=== PATIENT | female | born 1985 | race Caucasian/White ===

== ENCOUNTER → 2017-03-14 | Outpatient (CLI) | payer BC ==
[~2017-03-14] VITALS: Ht 170.2 cm; Wt 123.4 kg
[~2017-03-14] MED LIST: GLUCOPHAGE1000 MG PO; MIRENA52 MG IU; MULTIPLE VITAMI1 TA5 PO
[2017-03-14 14:56] VITALS: BP 102/72; PULSE 76
== END ==
LOC: LIGHT 06-21 15:00
DX: E88.81 Metabolic syndrome and other insulin resistance (principal); E66.01 Morbid (severe) obesity due to excess calories; Z68.41 Body mass index [BMI] 40.0-44.9, adult; Z71.3 Dietary counseling and surveillance; E16.1 Other hypoglycemia

== ENCOUNTER → 2017-04-22 | Outpatient (CLI) | payer BC | LOC: BHSO 09:08 | DX: Z01.89 Encounter for other specified special examinations (principal) ==

== ENCOUNTER → 2017-04-22 | Outpatient (CLI) | payer BC ==
[~2017-04-22] VITALS: Ht 170.2 cm; Wt 126.6 kg
[2017-04-22 16:33] VITALS: BP 138/79; PULSE 81
== END ==
LOC: LIGHT 08:58
DX: E88.81 Metabolic syndrome and other insulin resistance (principal); E66.01 Morbid (severe) obesity due to excess calories; Z68.41 Body mass index [BMI] 40.0-44.9, adult; Z71.3 Dietary counseling and surveillance; E16.1 Other hypoglycemia

== ENCOUNTER → 2017-06-24 | Outpatient (CLI) | payer BC ==
[~2017-06-24] MED LIST changes: +ZOFRAN8 MG PO
== END ==
LOC: LIGHT 14:55
DX: Z01.818 Encounter for other preprocedural examination (principal)

== ENCOUNTER 2017-07-10 07:50 | Day surgery (SDC) | payer BC ==
[2017-07-10] VITALS (10 sets, daily range): BP systolic 104–131; BP diastolic 50–86; PULSE 64–97; TEMP 97.4–98.9
[~2017-07-10] VITALS: Ht 170.2 cm; Wt 123.0 kg
[~2017-07-10 07:50] MED LIST changes: -ZOFRAN8 MG PO
[2017-07-11 02:04] VITALS: BP 131/52; PULSE 65; TEMP 98.7
[2017-07-11 05:59] VITALS: BP 140/75; PULSE 60; TEMP 98.4
[2017-07-11 09:27] VITALS: BP 158/80; PULSE 59; TEMP 98.3
[2017-07-11 14:56] VITALS: BP 170/89; PULSE 54; TEMP 97.9
[2017-07-15] MEDS ORDERED: ZOFRAN8 MG PO (14:31)
== END 2017-07-11 18:00 | disposition home or self-care (01) ==
LOC: SDCO 07:50 → SURG 11:21 → SDCO 07-11 18:00
DX: E66.01 Morbid (severe) obesity due to excess calories (principal); Z68.41 Body mass index [BMI] 40.0-44.9, adult; E78.00 Pure hypercholesterolemia, unspecified; E88.81 Metabolic syndrome and other insulin resistance; E16.1 Other hypoglycemia
CPT/HCPCS: OP; A9284; J0360; J1100; J1170; J1200; J1885; J2405; J2550; J2704; J2710; J7042; J7120

== ENCOUNTER → 2017-07-15 | Outpatient (CLI) | payer BC ==
[~2017-07-15] VITALS: Ht 170.2 cm; Wt 117.3 kg
[~2017-07-15] MED LIST changes: +ZOFRAN8 MG PO
[2017-07-15 14:32] VITALS: BP 106/78; PULSE 106
== END ==
LOC: LIGHT 09:04
DX: Z98.84 Bariatric surgery status (principal); R73.01 Impaired fasting glucose; E66.01 Morbid (severe) obesity due to excess calories; Z68.41 Body mass index [BMI] 40.0-44.9, adult; Z71.3 Dietary counseling and surveillance; E16.1 Other hypoglycemia

== ENCOUNTER → 2017-08-12 | Outpatient (CLI) | payer BC ==
[~2017-08-12] VITALS: Ht 170.2 cm; Wt 110.4 kg
[2017-08-12 15:10] VITALS: BP 100/68; PULSE 68
== END ==
LOC: LIGHT 10:15
DX: Z98.84 Bariatric surgery status (principal); R73.01 Impaired fasting glucose; E66.01 Morbid (severe) obesity due to excess calories; Z68.38 Body mass index [BMI] 38.0-38.9, adult; Z71.3 Dietary counseling and surveillance; E16.1 Other hypoglycemia

== ENCOUNTER → 2017-10-21 | Outpatient (CLI) | payer BC ==
[~2017-10-21] VITALS: Ht 170.2 cm; Wt 97.3 kg
[2017-10-21 16:39] VITALS: BP 106/70; PULSE 72
== END ==
LOC: LIGHT 09:36
DX: Z98.84 Bariatric surgery status (principal); R73.01 Impaired fasting glucose; E66.9 Obesity, unspecified; Z68.33 Body mass index [BMI] 33.0-33.9, adult; Z71.3 Dietary counseling and surveillance; E16.1 Other hypoglycemia
CPT/HCPCS: G0463

== ENCOUNTER → 2017-12-30 | Outpatient (CLI) | payer BC ==
[~2017-12-30] VITALS: Ht 170.2 cm; Wt 89.1 kg
[~2017-12-30] MED LIST changes: +MIRENA52 MG IY
[2017-12-30 15:37] VITALS: BP 130/70; PULSE 68
== END ==
LOC: LIGHT 08:57
DX: Z98.84 Bariatric surgery status (principal); R73.01 Impaired fasting glucose; E66.9 Obesity, unspecified; Z68.30 Body mass index [BMI] 30.0-30.9, adult; Z71.3 Dietary counseling and surveillance; E16.1 Other hypoglycemia
CPT/HCPCS: G0463

== ENCOUNTER → 2018-07-14 | Outpatient (CLI) | payer BC ==
[~2018-07-14] VITALS: Ht 170.2 cm; Wt 72.6 kg
[2018-07-14 16:44] VITALS: BP 108/68; PULSE 60
== END ==
LOC: LIGHT 06-30 13:38
DX: E16.9 Disorder of pancreatic internal secretion, unspecified (principal); Z98.84 Bariatric surgery status; E66.9 Obesity, unspecified; Z71.3 Dietary counseling and surveillance; Z68.25 Body mass index [BMI] 25.0-25.9, adult
CPT/HCPCS: G0463

== ENCOUNTER 2020-11-26 23:23 | Emergency (ER) | payer BC ==
[~2020-11-26] VITALS: Ht 167.6 cm; Wt 75.0 kg
[2020-11-26 23:29] VITALS: BP 122/69; TEMP 96.7
[2020-11-26 23:52] LABS: BASO # 0.1 (0.0-0.2); BASO % 0.6 % (0.0-2.0); EOS # 0.3 (0.0-0.7); EOS % 2.5 % (0-4.0); GRAN # 7.6 (1.4-6.5); GRAN % 60.8 % (42.2-75.2); HEMATOCRIT 36.8 % (37.0-47.0); HEMOGLOBIN 12.7 g/dl (12.5-16.0); LYMPH # 3.5 (1.2-3.4); LYMPH % 28.4 % (20.0-51.0); MEAN CELL VOLUME 89 fl (80.0-100.0); MEAN CORPUSCULAR HEMOGLOBIN 31 pg (27.0-31.0); MEAN CORPUSCULAR HGB CONC 35 g/dl (33.0-37.0); MEAN PLATELET VOLUME 11.2 fl (7.4-10.4); MONO # 0.9 (0.1-0.6); MONO % 7.5 % (1.7-9.3); PLATELET COUNT 265 K/mm3 (130-400); RED BLOOD COUNT 4.12 M/mm3 (4.10-5.30); REDCELL DISTRIBUTION WIDTH-CV 11.7 % (11.5-14.5)
[2020-11-27 00:03] LABS: ALBUMIN 4.2 gm/dL (3.5-5.0); BILIRUBIN,TOTAL 0.4 mg/dL (0.0-1.0); CALCIUM 9.3 mg/dL (8.4-10.2); CREATININE, serum 0.7 (0.52-1.25); POTASSIUM 3.5 mmol/L (3.4-5.0); TOTAL PROTEIN 7.3 gm/dL (6.4-8.2)
[2020-11-27 01:12] LABS: COLLECTION METHOD CLEAN CATCH
[2020-11-27 01:19] LABS: MUCOUS Present /lpf; PH 6 (5-8); SQUAMOUS EPITHELIAL 0-2 /hpf; URINE APPEARANCE Hazy; URINE BACTERIA None Seen /hpf; URINE BILIRUBIN Negative (NEGATIVE); URINE BLOOD Negative (NEGATIVE); URINE COLOR Yellow; URINE GLUCOSE Negative (NEGATIVE); URINE KETONE 1+ (NEGATIVE); URINE LEUKOCYTE ESTERASE 1+ (NEGATIVE); URINE NITRATE Negative (NEGATIVE); URINE PROTEIN(semi-quant) Negative (NEGATIVE); URINE RBC 0-2 /hpf; URINE UROBILINOGEN >=4.0 mg/dL (NEGATIVE)
[2020-11-27] MEDS ORDERED: ZOFRAN ODT4 MG PO (02:57)
[2020-11-27 03:16] VITALS: PULSE 77
== END 2020-11-27 03:16 | disposition home or self-care (01) ==
LOC: COL.ER 23:23
PROVIDERS: Family Medicine
DX: R10.13 Epigastric pain (principal); Z98.84 Bariatric surgery status; Z32.02 Encounter for pregnancy test, result negative
CPT/HCPCS: J2270; J2405; J7030; Q9967

== ENCOUNTER → 2020-12-08 | Outpatient (CLI) | payer BC ==
[~2020-12-08] MED LIST changes: +MOTRIN 600600 MG/TAB PO; +NORCO 325 MG-51 TAB PO; +ZOFRAN ODT4 MG PO
== END ==
LOC: COL.RAD 07:50
DX: K80.20 Calculus of gallbladder without cholecystitis without obstruction (principal)

== ENCOUNTER → 2020-12-21 | Outpatient (CLI) | payer BC | LOC: COL.RAD | DX: R10.11 Right upper quadrant pain (principal) | CPT/HCPCS: A9537; J2805 ==

== ENCOUNTER 2020-12-30 10:36 | Day surgery (SDC) | payer BC ==
[~2020-12-30] VITALS: Ht 170.2 cm; Wt 75.5 kg
[2020-12-30] VITALS (8 sets, daily range): BP systolic 97–110; BP diastolic 53–69; PULSE 55–69; TEMP 98.3–98.8
[~2020-12-30 10:36] MED LIST changes: -MOTRIN 600600 MG/TAB PO; -NORCO 325 MG-51 TAB PO
[2020-12-30] MEDS ORDERED: NORCO 325 MG-51 TAB PO (14:37)
[2020-12-30] MEDS ORDERED: MOTRIN 600600 MG/TAB PO (14:38)
--- NOTE | 2020-12-30 15:10 | NUR ---
Patient returns to room 8 per cart from PACU and is awake and alert. IV fluids infusing and site is free of redness. Incisions x4 on abdomen from scope covered with exofin dressing. Temp 98.6 and room air sats 100%. Siderails up x2 and call light in reach. Spouse in room. Allowed to rest.
--- NOTE | 2020-12-30 15:25 | NUR ---
Resting without complaints of pain or nausea.
--- NOTE | 2020-12-30 15:40 | NUR ---
Continues to rest and not disturbed.
--- NOTE | 2020-12-30 15:55 | NUR ---
Room air sats 98%. Resting and offers no complaints of pain or nausea.
--- NOTE | 2020-12-30 16:10 | NUR ---
Continues to rest without complaints of pain or nausea.
--- NOTE | 2020-12-30 16:30 | NUR ---
Room air sats 98%. Taking apple juice and eating ice cream.
--- NOTE | 2020-12-30 16:46 | NUR ---
Returns to room from the bathroom. Gait steady and was able to void. Denies pain or nausea.
--- NOTE | 2020-12-30 16:48 | NUR ---
IV discontinued and patient dresses self.
--- NOTE | 2020-12-30 16:54 | NUR ---
Patient dismissal instructions given and signed. Verbalized understanding of these. Dismissed to home driven by spouse and taken to the front door per wheelchair by [employer] and assisted into vehicle with instructions in hand.
== END 2020-12-30 16:55 | disposition home or self-care (01) ==
LOC: SDCO 10:36
DX: K80.10 Calculus of gallbladder with chronic cholecystitis without obstruction (principal); G43.909 Migraine, unspecified, not intractable, without status migrainosus; R73.03 Prediabetes; E78.5 Hyperlipidemia, unspecified; F17.290 Nicotine dependence, other tobacco product, uncomplicated; Z98.84 Bariatric surgery status; Z20.822 Contact with and (suspected) exposure to COVID-19; Z79.899 Other long term (current) drug therapy; Z80.0 Family history of malignant neoplasm of digestive organs; Z83.3 Family history of diabetes mellitus; Z80.1 Family history of malignant neoplasm of trachea, bronchus and lung; Z82.49 Family history of ischemic heart disease and other diseases of the circulatory system
CPT/HCPCS: J0690; J1100; J1885; J2405; J2550; J2704; J3010; J7030; Q9967

== ENCOUNTER → 2021-01-09 | Outpatient (CLI) | payer BC ==
[~2021-01-09] MED LIST changes: +MOTRIN 600600 MG/TAB PO; +NORCO 325 MG-51 TAB PO
== END ==
LOC: COL.RAD 11:22
DX: N83.201 Unspecified ovarian cyst, right side (principal); N83.202 Unspecified ovarian cyst, left side; Z96.89 Presence of other specified functional implants